=== PATIENT | male | born 1980 | race Asian ===

== ENCOUNTER 2018-03-29 09:41 | Emergency (ER) | payer OTHER ==
[~2018-03-29] VITALS: Ht 175.3 cm; Wt 63.5 kg
[2018-03-29 09:48] VITALS: BP 136/92; TEMP 97.5
== END 2018-03-29 10:40 | disposition home or self-care (01) ==
LOC: ED 09:41
DX: R22.0 Localized swelling, mass and lump, head (principal); H10.31 Unspecified acute conjunctivitis, right eye
CPT/HCPCS: 87070; 87205; 99282

== ENCOUNTER 2020-02-17 18:49 | Emergency (ER) | payer OTHER ==
[~2020-02-17] VITALS: Ht 175.3 cm; Wt 63.5 kg
[2020-02-17 20:02] VITALS: BP 126/97; TEMP 98.8
== END 2020-02-17 20:02 ==
LOC: ED 18:49
DX: S22.42XA Multiple fractures of ribs, left side, initial encounter for closed fracture (principal); W11.XXXA Fall on and from ladder, initial encounter; Y92.148 Other place in prison as the place of occurrence of the external cause
CPT/HCPCS: 96372; 99283; J1885

== ENCOUNTER 2020-11-30 13:09 | Emergency (ER) | payer OTHER ==
[~2020-11-30] VITALS: Ht 175.3 cm; Wt 64.0 kg
[2020-11-30 13:18] VITALS: TEMP 98.6
[2020-11-30 14:35] VITALS: BP 128/82
== END 2020-11-30 14:35 | disposition home or self-care (01) ==
LOC: ED 13:09
DX: S00.83XA Contusion of other part of head, initial encounter (principal); V89.2XXA Person injured in unspecified motor-vehicle accident, traffic, initial encounter; Y92.89 Other specified places as the place of occurrence of the external cause
CPT/HCPCS: 99283

== ENCOUNTER 2020-12-05 17:41 | Emergency (ER) | payer OTHER ==
[~2020-12-05] VITALS: Ht 175.3 cm; Wt 64.0 kg
[2020-12-05 17:50] VITALS: TEMP 98.9
[2020-12-05 19:35] VITALS: BP 119/79
== END 2020-12-05 19:35 | disposition home or self-care (01) ==
LOC: ED 17:41
DX: S06.0X0D Concussion without loss of consciousness, subsequent encounter (principal); S16.1XXD Strain of muscle, fascia and tendon at neck level, subsequent encounter; H60.02 Abscess of left external ear; V49.50XD Passenger injured in collision with unspecified motor vehicles in traffic accident, subsequent encounter; Y92.89 Other specified places as the place of occurrence of the external cause
CPT/HCPCS: 99283